=== PATIENT | female | born 1990 | race Caucasian/White ===

== ENCOUNTER 2022-08-21 23:34 | Day surgery (SDC) | payer MEDICAID, OTHER ==
[2022-08-21 23:50] VITALS: BMI 21.9
[2022-08-22] MEDS ORDERED: hydrALAZINE 20 MG/ML VIAL SLOW IVP PRN (00:03)
[2022-08-22 01:24] LABS: Bilirubin Neg (Negative); Blood, Urine Negative (Negative); Clarity Slightly Cloudy (Clear); Glucose, Urine (Dipstick) Normal (Negative); Ketone, Urine 50 mg/dL (Negative); Leukocyte 25 (Negative); Nitrite Negative (Negative); Protein, Urine (Dipstick) 15 mg/dl (Neg-Trace); Specific Gravity, Urine 1.015 (1.005-1.030)
[2022-08-22] MEDS ORDERED: Lactated Ringer's 1,000 ML IV SCH (01:30)
[2022-08-22 01:35] LABS: Bacteria/HPF None Seen HPF (None Seen); CAUTI Indications for Culture Pregnancy; RBC/HPF 0-3 HPF (0-3); Renal Epithelial None Seen HPF (None Seen); Transitional Epithelial 0-3 HPF (None Seen); WBC/HPF 0-3 HPF (0-3)
[2022-08-22 01:36] LABS: Mucous/LPF 4+ LPF (<2+)
[2022-08-22 01:38] LABS: Urine Culture Reflex Yes Yes
== END 2022-08-22 02:37 | disposition home or self-care (01) ==
LOC: CSHLD/OP 23:34
PROVIDERS: ATTEND Obstetrics & Gynecology
DX: O99.283 Endocrine, nutritional and metabolic diseases complicating pregnancy, third trimester (principal); E86.0 Dehydration; Z3A.31 31 weeks gestation of pregnancy
CPT/HCPCS: 51701; 81001; 87086; 96360; 99282